=== PATIENT | female | born 1950 | race Caucasian/White ===

== ENCOUNTER → 2017-01-03 | Outpatient (CLI) | payer BC | END | disposition home or self-care (01) | LOC: CFH 11:57 | PROVIDERS: ATTEND Family Medicine | DX: Z13.820 Encounter for screening for osteoporosis (principal); M85.88 Other specified disorders of bone density and structure, other site | CPT/HCPCS: 77080 ==

== ENCOUNTER → 2019-09-03 | Outpatient (CLI) | payer MEDICARE | END | disposition home or self-care (01) | LOC: CFH 07:58 | PROVIDERS: ATTEND Nurse Practitioner Family | DX: Z12.31 Encounter for screening mammogram for malignant neoplasm of breast (principal); M85.88 Other specified disorders of bone density and structure, other site; N95.9 Unspecified menopausal and perimenopausal disorder | CPT/HCPCS: 77063; 77067; 77080 ==

== ENCOUNTER → 2020-05-19 | Outpatient (CLI) | payer MEDICARE | END | disposition home or self-care (01) | LOC: CFH 09:39 | PROVIDERS: ATTEND Podiatrist Foot & Ankle Surgery | DX: M19.071 Primary osteoarthritis, right ankle and foot (principal); R22.41 Localized swelling, mass and lump, right lower limb ==

== ENCOUNTER 2020-12-24 14:22 | Observation (INO) | payer MEDICARE ==
[~2020-12-24] VITALS: Ht 162.6 cm; Wt 55.2 kg
--- NOTE | 2020-12-24 15:00 | NUR ---
Pt ambulatory to bathroom for UA with steady gait.
--- NOTE | 2020-12-24 15:05 | NUR ---
Late entry: Report to primary RNDixie.
--- NOTE | 2020-12-24 15:09 | NUR ---
PT C/O OF PAIN AND DISCOMFORT IN ABD FOR 24 HRS. REPORTS MILD DIARRHEA AND PAIN IN LOWER QUADRANTS. DENIES CP, SOB, N/V. PT ATTACHED TO MONITORS. VSS. AT BEDSIDE. AWAITING ORDERS.
[2020-12-24 15:23] LABS: BASOPHILS % (AUTO) 1 % (0-1); EOSINOPHILS % (AUTO) 1 % (1-7); LYMPHOCYTES % (AUTO) 14 % (22-44); MD NO; MEAN CORPUSCULAR HEMOGLOBIN 30.8 pg (27.0-34.8); MEAN CORPUSCULAR HGB CONC 34.3 g/dL (32.4-35.8); MEAN PLATELET VOLUME 8.5 fL (7.4-10.4); MONOCYTES % (AUTO) 5 % (2-9); NEUTROPHILS % (AUTO) 80 % (42-75); PLATELET COUNT 207 x10^3/uL (130-400); RED BLOOD COUNT 4.64 x10^6/uL (3.82-5.3); RED CELL DISTRIBUTION WIDTH 13.1 % (9.6-15.2)
[2020-12-24] MEDS ORDERED: KETOROLAC 30 MG/1 ML IVPush ONE (15:30)
[2020-12-24] MEDS ORDERED: ONDANSETRON 2MG/ML, 2ML IVPush ONE (15:30)
[2020-12-24] MEDS ORDERED: MORPHINE SULFATE 4 MG/ML, 1ML IVPush PRN (15:30)
[2020-12-24] MEDS ORDERED: SODIUM CHLORIDE FLUSH 10ML SYR IVF ONE (15:30)
[2020-12-24 15:32] LABS: ALANINE AMINOTRANSFERASE 20 U/L (12-78); ALBUMIN 4.2 g/dL (3.4-5.0); ANION GAP 5 mmol/L (5-15); CHLORIDE 106 mmol/L (98-107); CREATININE 0.84 mg/dL (0.55-1.02)
[2020-12-24] MEDS ORDERED: KETOROLAC 30 MG/1 ML ONE (15:33)
[2020-12-24 15:34] LABS: ALKALINE PHOSPHATASE 131 U/L (45-117); BILIRUBIN,TOTAL 0.8 mg/dL (0.2-1.0); TOTAL PROTEIN 8.1 g/dL (6.4-8.2)
--- NOTE | 2020-12-24 15:38 | NUR ---
pt medicated per emar. samira. vanessa. at bedside.
[2020-12-24 15:49] LABS: MICROSCOPIC INDICATED
[2020-12-24] MEDS ORDERED: OMNIPAQUE 350 MG/ML, 100ML BOTTLE ONE (15:55)
--- NOTE | 2020-12-24 16:21 | NUR ---
NO BC PRIOR TO ANTIBIOTICS PER MD.
[2020-12-24] MEDS ORDERED: METRONIDAZOLE PMX 500MG/100ML 100 ML ONE (16:24)
--- NOTE | 2020-12-24 16:24 | NUR ---
Task RN: SHELLEY swab collected and walked to lab.
[2020-12-24] MEDS ORDERED: CEFOTETAN PMX 1GM/50ML 50 ML IVPB ONE (16:30)
[2020-12-24] MEDS ORDERED: METRONIDAZOLE PMX 500MG/100ML 100 ML IV ONE (16:30)
--- NOTE | 2020-12-24 17:56 | NUR ---
pt resting in bed. states she has 4/10 pain but is tolerable and would perfer not to have pain medication. vss. mendez.
--- NOTE | 2020-12-24 18:24 | NUR ---
report called to Ren SANCHEZ.
[2020-12-24] MEDS ORDERED: MIDAZOLAM 1 MG/ML, 2ML ONE (18:53)
[2020-12-24] MEDS ORDERED: FENTANYL PF 250 MCG/5ML ONE (18:53)
[2020-12-24] MEDS ORDERED: LABETALOL 5MG/ML, 20ML IV PRN (19:00)
[2020-12-24] MEDS ORDERED: HALOPERIDOL 5 MG/ML IV PRN (19:00)
[2020-12-24] MEDS ORDERED: DIPHENHYDRAMINE 50 MG/ML, 1ML IVPush PRN (19:00)
[2020-12-24] MEDS ORDERED: HYDROmorphone 1 MG/ML, 1ML INJ IVPush PRN (19:00)
[2020-12-24] MEDS ORDERED: MEPERIDINE/PF 25MG/0.5ML IVPush PRN (19:00)
[2020-12-24] MEDS ORDERED: BUPIVACAINE/PF 0.5% ONE (19:00)
[2020-12-24] MEDS ORDERED: OXYcodone 5 MG/5 ML ORAL.SOL UDC PO PRN (19:00)
[2020-12-24] MEDS ORDERED: EPINEPHRINE 1 MG/ML, 1ML ONE (19:00)
[2020-12-24] MEDS ORDERED: PROMETHAZINE 25 MG/ML, 1ML IVPush PRN (19:00)
[2020-12-24] MEDS ORDERED: hydrALAzine 20 MG/ML, 1ML IV PRN (19:00)
[2020-12-24] MEDS ORDERED: FENTANYL PF 100 MCG/2ML IV PRN (19:00)
[2020-12-24] MEDS ORDERED: CEFOTETAN 2 GM ONE (19:23)
[2020-12-24] MEDS ORDERED: BUPIVACAINE/PF 0.5% INFIL ONE (19:40)
[2020-12-24] MEDS ORDERED: EPINEPHRINE 1 MG/ML, 1ML INFIL ONE (19:41)
[2020-12-24] MEDS ORDERED: SUGAMMADEX 200 MG/2 ML IVPush ONE (19:43)
[2020-12-24] MEDS ORDERED: SUCCINYLCHOLINE 20 MG/ML, 10ML ONE (19:44)
[2020-12-24] MEDS ORDERED: NEOSTIGMINE 1 MG/ML, 10ML ONE (19:44)
[2020-12-24] MEDS ORDERED: GLYCOPYRROLATE 0.2MG/1ML, 5ML ONE (19:44)
[2020-12-24] MEDS ORDERED: ROCURONIUM 10MG/ML,5ML ONE (19:44)
[2020-12-24] MEDS ORDERED: CEFAZOLIN 1,000 MG ONE (19:44)
[2020-12-24] MEDS ORDERED: DEXAMETHASONE 4 MG/ML, 1ML ONE (19:44)
[2020-12-24] MEDS ORDERED: PROPOFOL 10 MG/ML, 20ML ONE (19:44)
[2020-12-24] MEDS ORDERED: ONDANSETRON 2MG/ML, 2ML ONE (19:44)
[2020-12-24] MEDS ORDERED: OXYcodone 5 MG/5 ML ORAL.SOL UDC ONE (20:43)
[2020-12-24] MEDS ORDERED: ACETAMINOPHEN 650 MG/20.3 ML UDC ONE (20:43)
[2020-12-24 21:04] VITALS: BP 131/78
[2020-12-24] MEDS ORDERED: ACETAMINOPHEN 325 MG TABLET PO PRN (21:30)
[2020-12-24] MEDS ORDERED: OXYcodone/APAP 5/325MG TABLET PO PRN (22:00)
[2020-12-24] MEDS ORDERED: ONDANSETRON 2MG/ML, 2ML IVPush PRN (22:00)
[2020-12-24] MEDS ORDERED: LACTATED RINGERS 1,000 ML IV SCH (22:00)
[2020-12-24] MEDS ORDERED: morphine SULFATE 10 MG/ML, 1ML IVPush PRN (22:00)
[2020-12-25 00:35] VITALS: BP 138/76
[2020-12-25 03:48] VITALS: BP 126/59
[2020-12-25 06:30] VITALS: BP 117/72
[2020-12-25] MEDS ORDERED: OXYC1TAB14 PO (08:43)
[2020-12-25 10:40] VITALS: BP 145/80
== END 2020-12-25 11:15 | disposition home or self-care (01) ==
LOC: ED 16:18 → EDIP 16:22 → 4NE 18:32 → DCLOUNGE 12-25 11:04
PROVIDERS: ADMIT Surgery; ATTEND Surgery
DX: K35.80 Unspecified acute appendicitis (principal); Z20.822 Contact with and (suspected) exposure to COVID-19; Z79.899 Other long term (current) drug therapy
CPT/HCPCS: 36415; 44970; 74177; 80053; 81001; 83605; 83690; 85025; 87635; 88304; 96361; 96365; 96367; 96375; 99285; G0378; J0171; J0330; J0690; J1100; J1885; J2250; J2405; J2704; J3010; J7120; Q9967; S0020; J2710